=== PATIENT | female | born 1935 | race Caucasian/White ===

== ENCOUNTER 2016-03-25 13:34 | Outpatient (CLI) | payer MEDICARE ==
[2016-03-25 14:19] LABS: Prothrombin Time 26.4 SEC (12.0-14.7)
== END 2016-03-25 13:35 | disposition home or self-care (01) ==
LOC: NAVSJIPCSP 13:34
PROVIDERS: ATTEND Internal Medicine
DX: Z51.81 Encounter for therapeutic drug level monitoring (principal); I48.91 Unspecified atrial fibrillation; Z79.01 Long term (current) use of anticoagulants
CPT/HCPCS: 36415; 85610

== ENCOUNTER 2016-04-23 13:45 | Outpatient (CLI) | payer MEDICARE ==
--- NOTE | 2016-04-23 16:35 | RAD ---
THREE VIEWS OF THE RIGHT ANKLE 04/23/16 INDICATION: Pain and swelling. COMPARISON: None. FINDINGS: There is healed medial malleolar and distal fibular fracture. There is enhanced STT osteoarthrosis. Enthesopathic change seen off the calcaneus. There are Monckeberg's calcifications seen within poste rior soft tissues. There is prominent circumferential soft tissue swelling of the right ankle. IMPRESSION: 1. Healed posttraumatic postsurgical changes of the right ankle. 2. Osteoarthritic changes of the hindfoot. 3. Nonspecific soft tissue swelling of the right ankle. POS: [facility]
== END 2016-04-23 13:46 | disposition home or self-care (01) ==
LOC: NAV RAD 13:45
PROVIDERS: ATTEND Internal Medicine
DX: M25.571 Pain in right ankle and joints of right foot (principal)

== ENCOUNTER 2016-05-06 11:30 | Outpatient (CLI) | payer MEDICARE ==
[2016-05-06 13:17] LABS: Prothrombin Time 25.2 SEC (12.0-14.7)
== END 2016-05-06 11:31 | disposition home or self-care (01) ==
LOC: NAVSJIPCSP 11:30
PROVIDERS: ATTEND Internal Medicine
DX: I48.91 Unspecified atrial fibrillation (principal)
CPT/HCPCS: 36415; 85610

== ENCOUNTER 2016-06-11 13:23 | Outpatient (CLI) | payer MEDICARE ==
[2016-06-11 14:40] LABS: Prothrombin Time 23.7 SEC (12.0-14.7)
== END 2016-06-11 13:24 | disposition home or self-care (01) ==
LOC: NAVSJIPCSP 13:23
PROVIDERS: ATTEND Internal Medicine
DX: Z51.81 Encounter for therapeutic drug level monitoring (principal); I48.91 Unspecified atrial fibrillation; Z79.01 Long term (current) use of anticoagulants
CPT/HCPCS: 36415; 85610

== ENCOUNTER 2016-06-30 14:11 | Outpatient (CLI) | payer MEDICARE ==
[2016-06-30 15:43] LABS: INR-International Normal Ratio 1.8; Prothrombin Time 21.2 SEC (12.0-14.7)
== END 2016-06-30 14:12 | disposition home or self-care (01) ==
LOC: NAV LABSP 14:11
PROVIDERS: ATTEND Internal Medicine
DX: I48.91 Unspecified atrial fibrillation (principal)
CPT/HCPCS: 36415; 85610

== ENCOUNTER 2016-08-05 13:16 | Outpatient (CLI) | payer MEDICARE ==
[2016-08-05 13:52] LABS: INR-International Normal Ratio 2.6
== END 2016-08-05 13:17 | disposition home or self-care (01) ==
LOC: NAVSJIPCSP 13:16
PROVIDERS: ATTEND Internal Medicine
DX: I48.91 Unspecified atrial fibrillation (principal)
CPT/HCPCS: 36415; 85610

== ENCOUNTER 2016-09-02 09:56 | Outpatient (CLI) | payer MEDICARE ==
[2016-09-02 12:28] LABS: #Basophils 0.1 thou/uL (0.0-0.2); #Eosinphils 0.3 thou/uL (0.0-0.7); #Monocytes 0.7 thou/uL (0.11-0.59); #Neutrophils 7.7 thou/uL (1.40-6.50); %Basophils 0.8 % (0.0-1.0); %Eosinophils 2.4 % (0.0-10.0); %Lymphocytes 18.6 % (21.0-51.0); %Monocytes 6.3 % (0.0-10.0); %Neutrophils 71.9 % (42.0-75.0); Hemoglobin 13.3 g/dL (12.0-16.0); Mean Corpuscular HGB CONC 33.3 g/dL (32.0-36.0); Mean Corpuscular Hemoglobin 31.6 pg (27.0-31.0); Mean Corpuscular Volume 95.1 fl (81.0-99.0); Mean Platelet Volume 7.5 fL (7.4-10.4); Platelet Count 198 thou/uL (130-400); RBC Distribution Width 11.9 % (11.5-14.5); Red Blood Cell (RBC) Count 4.22 mill/uL (4.20-5.40); White Blood Cell (WBC) Count 10.7 thou/uL (4.8-10.8)
[2016-09-02 12:32] LABS: Bilirubin Negative (Negative); Clarity Hazy (Clear); Glucose, Urine (Dipstick) Negative (Negative)
[2016-09-02 12:33] LABS: Blood, Urine Negative (Negative); Leukocyte Moderate (Negative); Nitrite Negative (Negative); Protein, Urine (Dipstick) 30 mg/dL (Neg-Trace); Specific Gravity, Urine 1.015 (1.005-1.030); Urobilinogen 0.2 mg/dL (0.2-1.0)
[2016-09-02 13:10] LABS: ALT (SGPT) 30 U/L (8-55); AST (SGOT) 39 U/L (5-34); Albumin 3.9 g/dL (3.4-4.8); Alkaline Phosphatase 86 U/L (40-150); Anion Gap 16 mmol/L (10-20); BUN (Urea Nitrogen) 8 mg/dL (9.8-20.1); Bilirubin, Total 0.6 mg/dL (0.2-1.2); Calc. Creatinine Clearance 0 mL/min (70-130); Calcium 8.9 mg/dL (7.8-10.44); Carbon Dioxide 24 mmol/L (23-31); Cardiac Risk 3.7 (Less than 4.5); Chloride 103 mmol/L (98-107); Cholesterol 153 mg/dl (< 200 Desired); Estimated GFR-MDRD 81; Glucose 171 mg/dL (83-110); HDL Cholesterol 41 mg/dL (>60 Neg Risk); LDL Cholesterol, Calculated 83 mg/dL; Potassium 4.4 mmol/L (3.5-5.1); Protein, Total 6.9 g/dL (6.0-8.3); Sodium 139 mmol/L (136-145); Triglycerides 143 mg/dL (Less than 150)
[2016-09-02 13:42] LABS: INR-International Normal Ratio 1.2; Prothrombin Time 15.7 SEC (12.0-14.7)
[2016-09-02 16:09] LABS: Bacteria/HPF 1+ HPF (None Seen); RBC/HPF 0-3 HPF (0-3)
[2016-09-02 17:39] LABS: Creatinine, Urine 78.41 mg/dL (47-110); Microalbumin Urine 8.7 mg/dL (0.5-50.0)
== END 2016-09-02 09:57 | disposition home or self-care (01) ==
LOC: NAVSJIPCSP 09:56
PROVIDERS: ATTEND Internal Medicine
DX: E78.5 Hyperlipidemia, unspecified (principal); E11.9 Type 2 diabetes mellitus without complications; I11.0 Hypertensive heart disease with heart failure; I50.9 Heart failure, unspecified; I48.91 Unspecified atrial fibrillation
CPT/HCPCS: 36415; 80053; 80061; 81003; 81015; 82043; 83036; 83880; 84443; 85025; 85610; 87086

== ENCOUNTER 2016-09-29 15:13 | Outpatient (CLI) | payer MEDICARE ==
[2016-09-29 17:24] LABS: INR-International Normal Ratio 2.4; Prothrombin Time 27.2 SEC (12.0-14.7)
== END 2016-09-29 15:14 | disposition home or self-care (01) ==
LOC: NAVSJIPCSP 15:13
PROVIDERS: ATTEND Internal Medicine
DX: I48.91 Unspecified atrial fibrillation (principal)
CPT/HCPCS: 85610

== ENCOUNTER 2016-11-12 12:02 | Outpatient (CLI) | payer MEDICARE ==
[2016-11-12 14:41] LABS: Prothrombin Time 23.4 SEC (12.0-14.7)
== END 2016-11-12 12:03 | disposition home or self-care (01) ==
LOC: NAV LABSP 12:02
PROVIDERS: ATTEND Internal Medicine
DX: Z51.81 Encounter for therapeutic drug level monitoring (principal); I48.91 Unspecified atrial fibrillation; Z79.01 Long term (current) use of anticoagulants
CPT/HCPCS: 36415; 85610

== ENCOUNTER 2016-12-02 14:55 | Outpatient (CLI) | payer MEDICARE ==
[2016-12-02 17:04] LABS: INR-International Normal Ratio 2.2; Prothrombin Time 25.6 SEC (12.0-14.7)
== END 2016-12-02 14:56 | disposition home or self-care (01) ==
LOC: NAVSJIPCSP 14:55
PROVIDERS: ATTEND Internal Medicine
DX: Z51.81 Encounter for therapeutic drug level monitoring (principal); I48.91 Unspecified atrial fibrillation; Z79.01 Long term (current) use of anticoagulants
CPT/HCPCS: 36415; 85610

== ENCOUNTER 2019-10-28 15:51 | Inpatient (IN) | payer MEDICARE ==
[2019-10-28] MEDS ORDERED: Dextrose 5% in Water 1,000 ML IV PRN (20:09)
[2019-10-28] MEDS ORDERED: Dextrose 50% Abboject 50 ML SYRINGE IVP PRN (20:09)
[2019-10-28] MEDS ORDERED: Calcium Carbonate 500 MG TAB PO SCH (20:15)
[2019-10-28] MEDS ORDERED: Atorvastatin Calcium 10 MG TAB PO SCH (20:15)
[2019-10-28] MEDS ORDERED: Latanoprost 0.005% Ophth Soln 2.5 ml Bottle EA EYE SCH (20:15)
[2019-10-28] MEDS ORDERED: Timolol 0.5% Ophth Soln 5 ml Bottle EA EYE SCH (20:15)
[2019-10-28] MEDS ORDERED: Warfarin Sodium 3 MG TAB PO SCH (20:15)
[2019-10-28] MEDS ORDERED: Acetaminophen 325 MG TAB PO PRN (22:54)
[2019-10-29] MEDS: Insulin Regular 300 UNITS/3 ML VIAL SC PRN ×3 (06:17→18:00)
[2019-10-29] MEDS: Calcium Carbonate 500 MG ChewTAB PO SCH ×2 (08:15→20:58)
[2019-10-29] MEDS: Timolol 0.5% Ophth Soln 5 ml Bottle EA EYE SCH (08:15)
[2019-10-29] MEDS: Cholecalciferol 1,000 UNITS (25 MCG) TAB PO SCH (08:15)
[2019-10-29] MEDS: Fluticasone Propionate Nasal Spray 16 gm Bottle NASAL SCH (08:16)
[2019-10-29] MEDS: Atorvastatin Calcium 10 MG TAB PO SCH (08:16)
[2019-10-29] MEDS ORDERED: Furosemide 40 MG TAB PO SCH (13:30)
--- NOTE | 2019-10-29 15:10 | HP ---
CHIEF COMPLAINT: Significant deconditioning, improving hyponatremia, and pulmonary edema for continued therapy. BRIEF HISTORY: This is an 84-year-old overweight female, who is a patient of Dr. Yang and was admitted to [facility] with shortness of breath and weakness. She was diagnosed with pulmonary edema. Echocardiogram showing 55% to 60% ejection fraction, enlarged right ventricle with moderate mitral regurgitation and severe tricuspid regurgitation as well as pulmonary hypertension. Stress test was negative. CT scan of the chest showed thyroid mass with substernal extension, which probably is causing her the cough and shortness of breath. She was treated with diuretics and she was also noted to have UTI and treated with antibiotics and discharged to [facility]. Unfortunately, she has not been able to participate with therapy there and meet the 3 hours a day and so was felt to be a candidate for custodial here and transferred yesterday. Today, she is somnolent, but arousable. She denies any questions. Nursing is concerned about her swallowing capability. Plan is to start her on diuretics and also IV fluids; make her n.p.o. except medications; have Speech Therapy evaluate the patient; do a stat CBC, CMP, PT/INR; then recheck a BNP and BMP tomorrow. No family at bedside. She also has atrial fibrillation, but it is rate controlled. PAST MEDICAL HISTORY: 1. Atrial fibrillation. 2. Hypertension. 3. Dyslipidemia. 4. Pulmonary hypertension. 5. Moderate mitral regurgitation and severe tricuspid regurgitation. 6. Diabetes mellitus, type 2. 7. Irritable bowel syndrome. PAST SURGICAL HISTORY: 1. Hysterectomy. 2. Hernia repair. PSYCHOSOCIAL HISTORY: The patient lives in [place]. No tobacco or alcohol abuse. ALLERGIES: CODEINE. FAMILY HISTORY: Noncontributory to current admission. MEDICATIONS: She has been transferred here on the following medications: 1. Tylenol 650 p.o. q.6 p.r.n. 2. Lipitor 10 mg daily. 3. Vitamin D3 1000 units daily. 4. Flonase nasal spray one spray to each nostril. 5. Sliding scale coverage with insulin. 6. Xalatan eye drops for glaucoma. 7. Pantoprazole 40 mg daily. 8. Timolol eye drops for glaucoma. 9. Warfarin 3 mg daily. REVIEW OF SYSTEMS: GENERAL: The patient denies any fevers. She is more somnolent. She does complain of fatigue. CARDIOVASCULAR SYSTEM: Denies any chest pain or occasional cough. Denies any PND, orthopnea or pedal edema. RESPIRATORY SYSTEM: Occasional cough. Denies any hemoptysis or pleuritic-type chest pain. GASTROINTESTINAL SYSTEM: Denies any nausea, vomiting, diarrhea, constipation, hematemesis, melena or hematochezia. GENITOURINARY SYSTEM: Denies any frequency, urgency, dysuria or hematuria. CENTRAL NERVOUS SYSTEM: Generalized weakness. She is somnolent, but arousable. Responds appropriately. HEENT: Denies any changes with her speech, hearing or swallowing, but nursing is concerned about her swallowing ability, so we will make her n.p.o. except meds. SKIN: Denies any rash. EXTREMITIES: Generalized joint pains. PHYSICAL EXAMINATION: GENERAL: This is an 84-year-old overweight female, who is sitting upright in bed and denies any concerns. VITAL SIGNS: She is afebrile. Heart rate is 83, respirations are 18, blood pressure is 118/76, and oxygen saturation is . HEENT: Normocephalic and atraumatic. Pupils equally reactive to light and accommodation. No JVD, thyromegaly, cervical adenopathy or throat exudates. No carotid bruits. CARDIOVASCULAR SYSTEM: S1 and S2 plus, irregularly irregular. RESPIRATORY SYSTEM: Normal vesicular breath sounds with decreased air entry in the bases. Occasional crackles. ABDOMEN: Soft, obese, and nontender. Bowel sounds heard in all quadrants. EXTREMITIES: Without cyanosis or clubbing. GENITOURINARY SYSTEM: Ying catheter in place. EXTREMITIES: Trace edema. CENTRAL NERVOUS SYSTEM: Somnolent, but arousable. Cranial nerves 2 through 12 intact. Generalized weakness. LABORATORY VALUES: Pending. IMPRESSION: 1. Recent hospitalization for hyponatremia and pulmonary edema. 2. Echocardiogram showing mildly decreased ejection fraction with severe tricuspid and moderate mitral regurgitation and elevated right ventricular pressures consistent with pulmonary hypertension. 3. Diabetes mellitus, type 2. 4. Hypertension. 5. Atrial fibrillation. 6. Dyslipidemia. 7. Irritable bowel syndrome. 8. Resolved urinary tract infection. PLAN: 1. Continue discharge medications. 2. Add Lasix. 3. Gentle hydration with D5 normal saline until speech therapy evaluates the patient. 4. Sliding scale coverage. 5. DVT prophylaxis. The patient is on warfarin. 6. Decubitus precaution. 7. Stress ulcer prophylaxis. 8. PT/OT eval and treat. 9. Oxygen to keep saturation greater than 92%. 10. Dr. Yang will assume care tonight. 11. No family at bedside. 12. Discussed with the patient and nursing in detail. All questions answered. Job ID: [id number]
[2019-10-29] MEDS: Dextrose 5 % And 0.9 % NaCl 1,000 ML IV SCH (15:30)
[2019-10-29 15:35] LABS: INR-International Normal Ratio 1.9
[2019-10-29 15:42] LABS: BUN (Urea Nitrogen) 26 mg/dL (9.8-20.1); Calc. Creatinine Clearance 70 mL/min (70-130); Calcium 8.6 mg/dL (7.8-10.44); Estimated GFR-MDRD 60; Glucose 195 mg/dL (83-110)
[2019-10-29 15:46] LABS: Chloride 97 mmol/L (98-107); Potassium 5.1 mmol/L (3.5-5.1); Sodium 146 mmol/L (136-145)
[2019-10-29 15:47] LABS: #Monocytes 0.6 thou/uL (0.11-0.59); #Neutrophils 8.5 thou/uL (1.40-6.50); %Basophils 0.4 % (0.0-1.0); %Eosinophils 0.1 % (0.0-10.0); %Lymphocytes 9.4 % (21.0-51.0); %Monocytes 6.1 % (0.0-10.0); %Neutrophils 84.1 % (42.0-75.0); Hemoglobin 11.5 g/dL (12.0-16.0); Mean Corpuscular HGB CONC 29.5 g/dL (32.0-36.0); Mean Corpuscular Hemoglobin 31.8 pg (27.0-31.0); Mean Platelet Volume 7.4 fL (7.4-10.4); Platelet Count 194 thou/uL (130-400); RBC Distribution Width 14.7 % (11.5-14.5); Red Blood Cell (RBC) Count 3.61 mill/uL (4.20-5.40); White Blood Cell (WBC) Count 10.1 thou/uL (4.8-10.8)
[2019-10-29 16:41] LABS: Carbon Dioxide 34 mmol/L (23-31)
[2019-10-29 16:44] LABS: Anion Gap 20 mmol/L (10-20)
[2019-10-29] MEDS: Warfarin Sodium 3 MG TAB PO SCH ×2 (18:00→18:21)
--- NOTE | 2019-10-29 19:00 | CT ---
CT HEAD WITHOUT IV CONTRAST COMPARISON: None HISTORY: Patient agitated and unresponsive to commands. Patient hyper anticoagulated one day ago. TECHNIQUE: Axial CT imaging at 5 mm intervals from vertex through skull base without contrast FINDINGS: There is significant motion artifact. Images had to be repeated. Low-density focus is seen in the rig ht basal ganglia suggesting a lacunar infarction of indeterminate age. There is decreased attenuation in the periventricular white matter which is nonspecific but likely reflective of chronic small vessel ischemic changes. There is mild cerebral volume loss. The ventricular system is normal in size, shape, and position for the degree of sulcal atrophy. There is no evidence of an acute cortical infarction, hemorrhage, mass effect, or midline shift. Visualized paranasal sinuses are clear. Osseous structures appear intact. IMPRESSION: 1. No acute intracranial abnormality demonstrated. 2. 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 3. Chronic small vessel ischemic changes and cerebral volume loss. 4. No intraparenchymal or extra-axial hemorrhage is identified.
[2019-10-29 19:04] LABS: Anisocytosis SLIGHT = 6-15 cells (100X) (0-5/hpf); MDiff Complete? YES; Macrocytosis SLIGHT = 6-15 cells (100X) (0-5/hpf); Platelet Morphology Comment Appears Adequate
[2019-10-29 19:35] VITALS: BMI 36.7
--- NOTE | 2019-10-29 20:34 | RAD ---
EXAM: CHEST ONE VIEW HISTORY: Respiratory distress COMPARISON: 10/26/2019 FINDINGS: Patient is rotated to the left accentuating the cardiac silhouette and bronchovascular markings, but the cardiac silhouette is probably enlarged. Moderate right and small left pleural effusions and associated passive atelectasis are present. There is a mild increase in central pulmonary vasculature . Vascular calcifications are seen in the thoracic aorta. Osteopenia is present. Postoperative changes proximal right humerus are again seen. IMPRESSION: Findings suggestive of CHF with moderate right and small left pleural effusions.
[2019-10-29 20:58] LABS: Bilirubin Negative (Negative); Blood, Urine Large (Negative); Clarity Cloudy (Clear); Glucose, Urine (Dipstick) Negative (Negative); Ketone, Urine Negative (Negative); Leukocyte Moderate (Negative); Nitrite Negative (Negative); Protein, Urine (Dipstick) 100 mg/dL (Neg-Trace); Urobilinogen 0.2 mg/dL (Less than 2)
[2019-10-29] MEDS: Latanoprost 0.005% Ophth Soln 2.5 ml Bottle EA EYE SCH (20:58)
[2019-10-29 21:04] LABS: Bacteria/HPF 2+ HPF (None Seen); Squamous Epithelial None Seen HPF (0-3); WBC/HPF Greater Than 50 HPF (0-3)
[2019-10-29] MEDS ORDERED: Furosemide 40 MG/4 ML VIAL SLOW IVP SCH (21:45)
[2019-10-29] MEDS: cefTRIAXone\\ROCEPHIN 1 GM in Sodium Chloride 0.9% 100 ML IVPB SCH (21:57)
[2019-10-29] MEDS ORDERED: Ondansetron PF 4 MG/2 ML Vial IVP PRN (22:46)
[2019-10-29] MEDS ORDERED: Ondansetron ODT 4 MG TAB PO PRN (22:46)
[2019-10-30] MEDS: Dextrose 5 % And 0.9 % NaCl 1,000 ML IV SCH (04:58)
[2019-10-30 05:36] LABS: INR-International Normal Ratio 2.4; Prothrombin Time 25.7 sec (12.0-14.7)
[2019-10-30 05:42] LABS: BUN (Urea Nitrogen) 26 mg/dL (9.8-20.1); Calc. Creatinine Clearance 69 mL/min (70-130); Calcium 8.1 mg/dL (7.8-10.44); Estimated GFR-MDRD 61; Glucose 222 mg/dL (83-110)
[2019-10-30 05:46] LABS: Chloride 98 mmol/L (98-107); Potassium 4.2 mmol/L (3.5-5.1); Sodium 147 mmol/L (136-145)
[2019-10-30] MEDS: Insulin Regular 300 UNITS/3 ML VIAL SC PRN ×2 (05:53→21:20)
[2019-10-30 05:59] LABS: Carbon Dioxide 36 mmol/L (23-31)
[2019-10-30 06:04] LABS: Anion Gap 17 mmol/L (10-20)
[2019-10-30] MEDS: Furosemide 40 MG TAB PO SCH (09:04)
[2019-10-30] MEDS: Atorvastatin Calcium 10 MG TAB PO SCH (09:05)
[2019-10-30] MEDS: Calcium Carbonate 500 MG ChewTAB PO SCH ×2 (09:05→19:44)
[2019-10-30] MEDS: Cholecalciferol 1,000 UNITS (25 MCG) TAB PO SCH (09:05)
[2019-10-30] MEDS: Fluticasone Propionate Nasal Spray 16 gm Bottle NASAL SCH (09:05)
[2019-10-30] MEDS: Timolol 0.5% Ophth Soln 5 ml Bottle EA EYE SCH (09:06)
[2019-10-30] MEDS: Warfarin Sodium 3 MG TAB PO SCH (17:44)
--- NOTE | 2019-10-30 19:14 | PRG ---
DATE OF SERVICE: 10/30/2019 SUBJECTIVE: The patient is an 84-year-old morbidly obese white female with a history of atrial fibrillation, congestive heart failure and recent acute kidney injury secondary to dehydration from irritable bowel syndrome, who has been unable to improve her strength despite normalization of her renal function and vital signs. She has, however, the last several days become more progressively lethargic, hallucinating with only a new finding of a urinary tract infection, which has recurred in the last 2 days. She has been started on treatment with Rocephin, but today is still confused and lethargic by the Accu-Cheks ranging from 182 to 222 with a sodium of 147, potassium 4.2, chloride 98, bicarb 36, BUN 26, creatinine 0.88, and calcium 8.1. BNP is 782. White count 10,100, hematocrit 38, and hemoglobin 11.5. OBJECTIVE: LUNGS: Decreased breath sounds in the bases. Chest x-ray shows mild pulmonary congestion with bilateral effusions. CARDIAC: Irregular rhythm. ABDOMEN: Obese and nontender. SKIN/EXTREMITIES: 1 to 2+ edema. NEUROLOGICAL: The patient is sedated and minimally responsive to deep pain, but appears to be in no distress. VITAL SIGNS: Showed to have blood pressure of 115/79, O2 saturations of 92% on 2 L, pulse of 90, and afebrile. ASSESSMENT: This is an 84-year-old white female with a history of type 2 diabetes, hypertension, atrial fibrillation, morbid obesity, and recent episode of severe diarrhea with dehydration, acute kidney injury, who has become more lethargic over the last 2 days since being found to have a urinary tract infection. She has been started on Rocephin and is having minimal response today. She is not to be resuscitated. We have attempted to contact the power of workers compensation defense attorney. We will continue treatment with Rocephin. We will add Levaquin. We will repeat PT, INR, CBC, comp met in the morning, and ammonia level tonight. The patient does not appear to be on any sedating drugs and unsure what is causing her lethargy, may be hypercapnic, but does not appear to be acidotic on her serum electrolytes, but unable to draw arterial blood gases. PROGNOSIS: Poor. Job ID: [id number]
[2019-10-30] MEDS: cefTRIAXone\\ROCEPHIN 1 GM in Sodium Chloride 0.9% 100 ML IVPB SCH (21:24)
[2019-10-30] MEDS: Latanoprost 0.005% Ophth Soln 2.5 ml Bottle EA EYE SCH (21:27)
[2019-10-31] MEDS: Insulin Regular 300 UNITS/3 ML VIAL SC PRN ×2 (05:19→21:53)
[2019-10-31 05:48] LABS: INR-International Normal Ratio 2.2; Prothrombin Time 24.7 sec (12.0-14.7)
[2019-10-31 05:53] LABS: #Lymphocytes 0.8 thou/uL (1.20-3.40); #Monocytes 0.7 thou/uL (0.11-0.59); #Neutrophils 7.6 thou/uL (1.40-6.50); %Basophils 0.4 % (0.0-1.0); %Lymphocytes 8.9 % (21.0-51.0); %Monocytes 7.9 % (0.0-10.0); %Neutrophils 82.8 % (42.0-75.0); Hemoglobin 10.1 g/dL (12.0-16.0); MDiff Complete? YES; Macrocytosis SLIGHT = 6-15 cells (100X) (0-5/hpf); Mean Corpuscular HGB CONC 29.4 g/dL (32.0-36.0); Mean Corpuscular Hemoglobin 31.6 pg (27.0-31.0); Mean Platelet Volume 7.6 fL (7.4-10.4); Platelet Count 141 thou/uL (130-400); Platelet Morphology Comment Appears Adequate; Red Blood Cell (RBC) Count 3.19 mill/uL (4.20-5.40); White Blood Cell (WBC) Count 9.1 thou/uL (4.8-10.8)
[2019-10-31 05:59] LABS: ALT (SGPT) 26 U/L (8-55); AST (SGOT) 24 U/L (5-34); Albumin 3.5 g/dL (3.4-4.8); Alkaline Phosphatase 74 U/L (40-110); BUN (Urea Nitrogen) 30 mg/dL (9.8-20.1); Bilirubin, Total 0.4 mg/dL (0.2-1.2); Calc. Creatinine Clearance 62 mL/min (70-130); Calcium 8.4 mg/dL (7.8-10.44); Estimated GFR-MDRD 54; Globulin 2.5 g/dL (2.4-3.5); Glucose 170 mg/dL (83-110)
[2019-10-31 06:08] LABS: Carbon Dioxide 39 mmol/L (23-31)
[2019-10-31 06:11] LABS: Chloride 100 mmol/L (98-107); Potassium 4.6 mmol/L (3.5-5.1); Sodium 152 mmol/L (136-145)
[2019-10-31 06:12] LABS: Anion Gap 18 mmol/L (10-20)
[2019-10-31] MEDS: Furosemide 40 MG TAB PO SCH (08:54)
[2019-10-31] MEDS: Atorvastatin Calcium 10 MG TAB PO SCH (08:55)
[2019-10-31] MEDS: Calcium Carbonate 500 MG ChewTAB PO SCH ×2 (08:55→20:35)
[2019-10-31] MEDS: Cholecalciferol 1,000 UNITS (25 MCG) TAB PO SCH (08:56)
[2019-10-31] MEDS: Fluticasone Propionate Nasal Spray 16 gm Bottle NASAL SCH (08:56)
[2019-10-31] MEDS: Timolol 0.5% Ophth Soln 5 ml Bottle EA EYE SCH (09:00)
[2019-10-31 15:20] LABS: SARS-CoV-2 MS2 Positive; SARS-CoV-2 N Gene Negative; SARS-CoV-2 S Gene Negative; SARS-CoV-2 by NAA Not Detected (NotDetected); SARS-CoV-2 orf1ab Negative
[2019-10-31] MEDS: Dextrose 5 % And 0.9 % NaCl 1,000 ML IV SCH (17:06)
[2019-10-31] MEDS: Warfarin Sodium 3 MG TAB PO SCH (17:06)
[2019-10-31 20:14] VITALS: TEMP 97.1
[2019-10-31] MEDS: Latanoprost 0.005% Ophth Soln 2.5 ml Bottle EA EYE SCH (21:15)
[2019-10-31] MEDS: cefTRIAXone\\ROCEPHIN 1 GM in Sodium Chloride 0.9% 100 ML IVPB SCH (21:15)
[2019-11-01] MEDS: Dextrose 5 % And 0.9 % NaCl 1,000 ML IV SCH (05:11)
[2019-11-01] MEDS: Insulin Regular 300 UNITS/3 ML VIAL SC PRN (05:12)
[2019-11-01 05:59] LABS: INR-International Normal Ratio 2.1; Prothrombin Time 23.3 sec (12.0-14.7)
[2019-11-01] MEDS ORDERED: D5 1/4 NS 1,000 ML IV SCH ×2 (06:30→07:00)
--- NOTE | 2019-11-01 06:53 | PRG ---
DATE OF SERVICE: 11/01/2019 SUBJECTIVE: The patient is somnolent, but less so than yesterday. She still does not respond appropriately, but does yell out and moan occasionally. She still is not eating well and is on IV fluids. OBJECTIVE: Her temperature is 97.1, pulse 99, respirations 20, O2 saturations 95% on 2 L and blood pressure 121/56. LABORATORY DATA: Showed PT 24, INR 2.2. Ammonia level elevated to 97. Sodium 152, potassium 4.6, chloride 100, bicarb 39, BUN 30, creatinine 0.99. Accu-Cheks ranged from 175 to 211, alk phosphatase 74, albumin 3.5, ALT 26, AST 24, total bilirubin 0.4. White count 9100, hematocrit 34 hemoglobin 10. PHYSICAL EXAMINATION: ABDOMEN: Soft and nontender. EXTREMITIES: Display trace edema. No clubbing, or cyanosis. LUNGS: Clear. LABORATORY DATA: Urine culture did show Pseudomonas infection, which was sensitive to the levofloxacin the patient is on. ASSESSMENT: 1. Metabolic encephalopathy of unknown etiology, possibly due to hepatic encephalopathy with borderline elevated ammonia, but with normal liver functions. The patient is morbidly obese with fatty liver. 2. Pseudomonas urinary tract infection, on appropriate antibiotics. No evidence of sepsis at this time other than the metabolic encephalopathy. 3. Chronic kidney disease, stage 3, stable with no evidence of acute injury. 4. Hypernatremia, most likely due to salt overload from saline fluids and we will change to D5 quarter normal saline. Continue sliding scale. 5. Diastolic heart failure appears to be compensated with normal vital signs at this time. Most recent chest x-ray, however showing pulmonary congestion, effusions and BNP elevated to 782. We will continue to monitor closely with only gentle hydration of D5 quarter normal at 75 mL an hour. Prognosis is poor and family understands this. Job ID: [id number]
[2019-11-01 08:47] VITALS: BP 107/56
[2019-11-01] MEDS: Fluticasone Propionate Nasal Spray 16 gm Bottle NASAL SCH (08:58)
[2019-11-01] MEDS: Timolol 0.5% Ophth Soln 5 ml Bottle EA EYE SCH (08:58)
[2019-11-01] MEDS: Calcium Carbonate 500 MG ChewTAB PO SCH (08:59)
[2019-11-01] MEDS: Cholecalciferol 1,000 UNITS (25 MCG) TAB PO SCH (08:59)
[2019-11-01] MEDS: Atorvastatin Calcium 10 MG TAB PO SCH (08:59)
[2019-11-01] MEDS: Furosemide 40 MG TAB PO SCH (09:00)
--- NOTE | 2019-11-03 06:39 | DIS ---
DATE OF ADMISSION: 10/28/2019 DATE OF DISCHARGE: 11/01/2019 DATE OF EXPIRATION: November 01, 2019. HOSPITAL COURSE: The patient was a pleasant 84-year-old white female, long-term patient of myself with multiple medical problems including congestive heart failure, atrial fibrillation, morbid obesity, hypertension, pulmonary hypertension, and type 2 diabetes as well as irritable bowel syndrome, who had recently been admitted to [facility] with exacerbation of congestive heart failure and then with subsequent acute kidney injury associated with diuresis. She was transferred to inpatient rehab, where she was found to have urinary tract infection and irritable bowel syndrome and subsequently became very weak, was unable to complete her course of therapy there and was transferred to [facility] for continued therapy on October 28, 2019. At that time, she was somnolent, but arousable. PHYSICAL EXAMINATION: VITAL SIGNS: Her vital signs showed her to have blood pressure 118/76, heart rate was 83, and respiratory rate 18. LUNGS: Clear. CARDIAC: Showed an irregular rhythm. ABDOMEN: Soft and nontender. EXTREMITIES: Displayed no but did show trace edema. NEUROLOGIC: She was somnolent, but arousable. She was kept n.p.o., started on gentle hydration, decubitus precautions. CT of the brain was done, which showed no acute changes. Chest x-ray showed no florid congestive heart failure, but did show a moderate right and small left pleural effusions consistent with mild congestive heart failure, but were minimally changed. White count was 10,100, hematocrit 38, hemoglobin 11.5. Sodium was 146, potassium 5.1, chloride 97, bicarb 34, BUN 26, creatinine 0.9. She did not improve. Her sensation remained lethargic, hallucinating. She did appear to have recurrent urinary tract infection, was started on Rocephin, but it had not changed. Her BNP was found to be elevated at 782. White count was 10,100. She was a DNR, but attempted to contact the [id number], who agreed to NG tube placement. Prognosis was poor, and the family understood this. Next day, her vital signs showed her to have blood pressure 107/56, pulse 94, and O2 sats 96% on 2 L. Laboratory showed her to have a stable white count of 9100, hematocrit 34, hemoglobin 10. PT/INR 2.1. However, sodium had increased to 152, potassium 4.6, BUN had remained fairly stable at 30, creatinine 0.99. Accu-Cheks fairly stable at 175 to 212. Liver functions were normal. BNP as mentioned earlier was, however, persistently elevated at 782. At this time, attempted to have an NG tube placed and start on tube feedings, pending results of PEG tube placement. During the process, the patient suddenly became apneic and then experienced cardiac arrest and as she was not to be resuscitated, was not resuscitated. Job ID: [id number]
== END 2019-11-01 18:05 | disposition expired | DRG 689 ==
LOC: NAV ACUTE 15:51
PROVIDERS: ADMIT Internal Medicine; ATTEND Internal Medicine
DX: N39.0 Urinary tract infection, site not specified (principal); G93.41 Metabolic encephalopathy; E87.0 Hyperosmolality and hypernatremia; N17.9 Acute kidney failure, unspecified; I13.0 Hypertensive heart and chronic kidney disease with heart failure and stage 1 through stage 4 chronic kidney disease, or unspecified chronic kidney disease; I50.32 Chronic diastolic (congestive) heart failure; R44.3 Hallucinations, unspecified; I46.9 Cardiac arrest, cause unspecified; Z66 Do not resuscitate; I08.1 Rheumatic disorders of both mitral and tricuspid valves; I48.91 Unspecified atrial fibrillation; I27.20 Pulmonary hypertension, unspecified; R53.81 Other malaise; E66.01 Morbid (severe) obesity due to excess calories; E86.0 Dehydration; E11.22 Type 2 diabetes mellitus with diabetic chronic kidney disease; K76.0 Fatty (change of) liver, not elsewhere classified; N18.3 Chronic kidney disease, stage 3 (moderate); K72.90 Hepatic failure, unspecified without coma; E78.5 Hyperlipidemia, unspecified; K58.9 Irritable bowel syndrome, unspecified; Z79.01 Long term (current) use of anticoagulants; Z90.49 Acquired absence of other specified parts of digestive tract; Z68.36 Body mass index [BMI] 36.0-36.9, adult; Z90.710 Acquired absence of both cervix and uterus
CPT/HCPCS: 36416; 70450; 71045; 80048; 80053; 81001; 82140; 83880; 85025; 85610; 87086; 87186; 87635; 36415-59; J0696; J1815; J1940; J1956; J3490; J7042; U0003